=== PATIENT | female | born 2000 | race African-American/Black ===

== ENCOUNTER 2024-05-11 09:23 | Emergency (ER) | payer BC, SELFPAY ==
[2024-05-11 09:31] VITALS: BP 140/82; PULSE 90; RESP 16; TEMP 36.6; O2SAT 100
--- NOTE | 2024-05-11 09:35 | ED.EYEPROB ---
HPI - Eye Problem General Chief complaint: Eye Problems Stated complaint: Eye Pain Related Data Allergies Allergy/AdvReac Type Severity Reaction Status Date / Time egg Allergy Unknown Unknown Verified 04/21/19 06:58 [facility] Past Medical History Medical History (Updated 04/22/19 @ 00:00 by Dirk Gutierrez) No significant past medical history Surgical History Surgical History (Updated 04/21/19 @ 08:26 by Tri Mcgovern) No significant past surgical history Social History Social History (Updated 04/21/19 @ 08:26 by Tri Mcgovern) Living arrangements: with family Course Vital Signs Vital signs: Vital Signs Temperature 97.9 F 05/11/24 09:31 Pulse Rate 90 05/11/24 09:31 Respiratory Rate 16 05/11/24 09:31 Blood Pressure 140/82 05/11/24 09:31 Pulse Oximetry 100 05/11/24 09:31 Temperature 97.9 F 05/11/24 09:31 Pulse Rate 90 05/11/24 09:31 Respiratory Rate 16 05/11/24 09:31 Blood Pressure 140/82 05/11/24 09:31 Pulse Oximetry 100 05/11/24 09:31 Discharge Plan Discharge Patient Language: Spanish Prescriptions: No Action prednisone 50 mg tablet 50 mg PO DAILY Qty: 5 0RF Zyrtec 10 mg capsule 10 mg PO DAILY Qty: 10 0RF Follow-up/Referrals: PHYSICIAN,WHIRLEY OPERATOR [Primary Care Provider] -
--- NOTE | 2024-05-11 10:00 | ED_ITS ---
HPI - URI/Sore Throat General Chief Complaint: Eye Problems Stated Complaint: Eye Pain Time Seen by Provider: 05/11/24 09:51 Source: patient and RN notes reviewed Mode of arrival: ambulatory Limitations: no limitations History of Present Illness HPI Narrative: 23-year-old female presents with concern for pain and pressure behind her left eye. She reports that started last night. Reports she has sinus pain and p ressure is well. Reports chronic allergy problems and has had sinus congestion for quite some time. She reports she takes allergy medicine year round. Reports she is taking Sudafed without relief. MD elicited complaint: nasal congestion, sinus pain and other (eye pressure and pain) Related Data Allergies Allergy/AdvReac Type Severity Reaction Status Date / Time egg Allergy Unknown Unknown Verified 05/11/24 09:40 Review of Systems Review of Systems: CONSTITUTIONAL: Denies malaise, chills, sweats, or fever. EYES: Denies visual changes, redness, or discharge. Reports left eye pressure in pain ENT: Reports rhinorrhea, congestion, sinus pain CARDIOVASCULAR: Denies chest pain, palpitations, or edema. RESPIRATORY: Reports cough. Denies dyspnea. GASTROINTESTINAL: Denies abdominal pain, nausea, vomiting, diarrhea SKIN: Denies rash or itching. MUSCULOSKELETAL: Denies myalgia. NEUROLOGIC: Denies headache. All systems reviewed & are unremarkable except as noted in HPI and below PMFSH Past Medical History Medical History (Updated 05/11/24 @ 10:04 by Sparkle Kwok NP) No significant past medical history Surgical History Surgical History (Updated 04/21/19 @ 08:26 by Tri Mcgovern) No significant past surgical history Social History Social History (Updated 04/21/19 @ 08:26 by Tri Mcgovern) Living arrangements: with family Comments At time of signature, agree with nursing past medical, surgical, social and family history. There is no relevant family history pertinent to the presenting complaint Exam Narrative: GENERAL: Well-appearing, well-nourished, and in no acute distress. HEAD: Normocephalic EYES: PERRLA, conjunctivae clear, sclerae clear, no drainage, upper and lower eyelid unremarkable, no periorbital edema or tenderness ENT: Nares clear, turbinates edematous and erythematous on the left side. Mucous membranes moist. TM pearly campuzano with dull light reflex bilaterally; no tragal tenderness. Oropharynx not erythematous without lesions. Tonsils not enlarged and without exudate, no drooling, no hoarseness, no trismus, uvula midline. NECK: Supple. No lymphadenopathy CHEST: Clear to auscultation, breath sounds equal. No wheezing, rhonchi, rales, or stridor. No respiratory distress, speaks in full sentences. HEART: Regular rate and rhythm. No murmur heard. SKIN: Warm, dry, no rash. NEURO: Alert and oriented x3. PSYCH: Normal mood and affect Course Course Emergency Course: Patient is aware of diagnosis, understands and agrees to treatment plan. Anticipatory guidance given. Patient agrees to follow-up as directed and is aware of reasons to seek care at the emergency department. Portions of this record may have been created with voice recognition software Level of Care: Express Care Visit Vital Signs Vital signs: Vital Signs Temperature 97.9 F 05/11/24 09:31 Pulse Rate 90 05/11/24 09:31 Respiratory Rate 16 05/11/24 09:31 Blood Pressure 140/82 05/11/24 09:31 Pulse Oximetry 100 05/11/24 09:31 Temperature 97.9 F 05/11/24 09:31 Pulse Rate 90 05/11/24 09:31 Respiratory Rate 16 05/11/24 09:31 Blood Pressure 140/82 05/11/24 09:31 Pulse Oximetry 100 05/11/24 09:31 Reviewed. MDM - URI/Sore Throat MDM Narrative Medical decision making narrative: Differential diagnosis considered: Loza virus, strep pharyngitis, allergic rhinitis, upper respiratory tract infection, sinusitis, rhinosinusitis, nasopharyngitis. viral pharyngitis, otitis media, otitis externa, pneumonia, bronchitis, viral cough syndrome, viral syndrome, and influenza. Bacterial conjunctivitis, allergic conjunctivitis, viral conjunctivitis, foreign body, blepharitis, chalazion, hordeolum, corneal abrasion, preseptal cellulitis, orbital cellulitis. No evidence of proptosis, ophthalmoplegia, vision loss, pain with eye movement. Exam findings show no acute concerns or changes; patient is non-toxic appearing and is in no distress. Exam findings show no acute concerns or changes; patient is non-toxic appearing and is in no distress. Patient is appropriate for outpatient treatment and follow-up. Lab Data Attestation: I reviewed the patient's lab results. Critical Care Time Critical Care Time Critical Care Time: No Discharge Plan Discharge Clinical Impression: Acute bacterial sinusitis Patient Disposition: Home, Self-Care Condition: Stable Instructions: Antibiotic Form, Sinusitis (ED) Additional Instructions: Take medications as prescribed Nonprescription pain medications, such as acetaminophen (eg, Tylenol) or ibuprofen (eg, Motrin, Advil), are recommended for pain. Flushing the nose and sinuses with a saline solution several times per day has been proven to decrease pain associated with congestion and shorten the duration of symptoms. Nasal steroids (such as Flonase, 2 sprays in each nostril daily) can help to reduce swelling inside the nose, usually within two to three days. These drugs have few side effects and relieve symptoms in most people. Oral decongestants (pseudoephedrine and phenylephrine) may be helpful if you have associated symptoms of ear pain or fullness. Nasal decongestant sprays, including oxymetazoline (Afrin) and phenylephrine (Amandeep-Synephrine), can be used to temporarily treat congestion. However, these sprays should not be used for more than two to three days due to the risk of rebound congestion (when the nose becomes congested constantly unless the medication is used repeatedly), possible addiction, and long-term consequences of frequent use, including persistent nasal dryness and crusting, which is very difficult to treat once it has developed. Medications to thin secretions (such as guaifenesin) may help to clear mucus. If you continue to have a eye pressure and pain despite medications to treat sinusitis you should see an eye doctor right away. Please follow-up with your primary care doctor in the next 1-2 days. If you cannot follow-up with your primary care doctor please go to the ED for any urgent issues. If you have any worsening of symptoms or any other concerns please go to the ED immediately. Patient Language: Italian Prescriptions: New methylprednisolone [Medrol (Yonatan)] 4 mg tablets,dose pack See Rx Instructions .ROUTE .COMPLEX Qty: 21 0RF Rx Instructions: orally per package directions amoxicillin-pot clavulanate 875-125 mg tablet 1 tablet PO Q12H 10 Days Qty: 20 0RF Follow-up/Referrals: PHYSICIAN,CLIENT MANAGER [employer] [Primary Care Provider] - Time of Disposition: 10:05
== END 2024-05-11 10:08 | disposition home or self-care (01) ==
PROVIDERS: Emergency Provider Nurse Practitioner
DX: J01.90 Acute sinusitis, unspecified (principal)
CPT/HCPCS: 99213; G0463